=== PATIENT | female | born 1950 | race Caucasian/White ===

== ENCOUNTER 2020-11-20 14:23 | Emergency (ER) | payer MEDICARE, SELFPAY ==
--- NOTE | ~2020-11-20 | CT_ITS ---
EXAMINATION: CT HEAD WITHOUT CONTRAST CLINICAL INFORMATION: Altered mental status COMPARISON: None TECHNIQUE: Contiguous axial imaging was performed from the skull base to vertex without intravenous administration of contrast. This CT examination was performed using dose optimization techniques as appropriate, variously including the following: *Automated exposure control *Adjustment of mA and/or kV according to patient size (this includes techniques or standardized protocols for targeted exams where dose is matched to indication/reason for exam; i.e. extremities or head) *Use of iterative reconstruction technique DLP: 573 mGy-cm FINDINGS: There is no evidence of acute intracranial hemorrhage or territorial infarction. No abnormal mass effect or midline shift is seen. Goodwin to white matter differentiation is well preserved. No extra-axial fluid collections are identified. There is mild prominence of the subarachnoid spaces and ventricles, likely reflective of volume loss. There is no abnormal attenuation within the brain parenchyma. The osseous structures and soft tissues are normal. The mastoid air cells and visualized portions of the paranasal sinuses are well aerated. CT/CT head/brain wo con IMPRESSION: No acute intracranial pathology.
--- NOTE | ~2020-11-20 | CT_ITS ---
EXAMINATION CT CHEST, ABDOMEN AND PELVIS WITH CONTRAST CLINICAL INFORMATION: Weakness and diarrhea COMPARISON: None. TECHNIQUE: Multidetector volumetric CT imaging of the chest, abdomen and pelvis was obtained after the administration of 100 mL of intravenous Omnipaque 300 without immediate adverse reactions. Coronal and sagittal reformats were reviewed. This CT examination was performed using dose optimization techniques as appropriate, variously including the following: *Automated exposure control *Adjustment of mA and/or kV according to patient size (this includes techniques or standardized protocols for targeted exams where dose is matched to indication/reason for exam; i.e. extremities or head) *Use of iterative reconstruction technique DLP: 294 mGy-cm. FINDINGS: CHEST LUNGS/PLEURA: Mild emphysema. Scattered areas of cystic and varicoid bronchiectatic change present bilaterally, worst within the left upper lobe. There are scattered endobronchial secretions as well as diffuse bronchial wall thickening. Within the lateral lingula, subpleural masslike opacity measuring 2.6 x 2.3 x 2.3 cm with overlying pleural thickening (see horvath images). There is an additional 1.8 cm nodular opacity within the lingula which appears to be associated with cystic bronchiectasis, likely mucus within a dilated bronchus. There are surrounding nodular opacities within the lingula, largely bronchocentric. No pleural effusion or pneumothorax. MEDIASTINUM/ANY: Heart normal in size. Coronary calcifications. Trace pericardial effusion. No mediastinal, hilar or supraclavicular adenopathy. Aorta is atherosclerotic. Central airways are patent. CHEST WALL/AXILLA: Unremarkable. ABDOMEN/PELVIS HEPATOBILIARY: Liver normal in size, contour and morphology. No suspicious lesions. No intra or extrahepatic biliary dilation. Cholelithiasis. No pericholecystic fluid. PANCREAS: Unremarkable. SPLEEN: Unremarkable. ADRENAL GLANDS: Unremarkable. KIDNEYS, URETERS AND BLADDER: Kidneys normal in size, axis and morphology demonstrating symmetric enhancement. No hydronephrosis or urinary calculi. Ureters normal in course and caliber. Bladder grossly unremarkable.. GASTROINTESTINAL TRACT: There is sigmoid colonic diverticulosis. Under distention of the sigmoid colon limits assessment for wall thickening. No pericolic inflammation. Small sliding-type hernia. Stomach otherwise unremarkable. Small bowel is normal. PELVIC VISCERA: Uterus and adnexa unremarkable. LYMPH NODES: No lymphadenopathy. PERITONEUM/BODY WALL: Unremarkable. VASCULAR STRUCTURES: Aorta is atherosclerotic. No aortic aneurysm. OSSEOUS STRUCTURES No acute or suspicious osseous abnormalities. Bones are demineralized. Scattered bone islands present throughout the pelvis, and bilateral femora. CT/CT abdomen pelvis wo con IMPRESSION: CHEST: * Mild emphysema.. * Scattered areas of cystic and varicoid bronchiectasis present bilaterally, more pronounced within the left upper lobe. * There is a masslike 2.6 and subpleural opacity within the lingula with overlying pleural thickening. Suspect that this represents infective consolidation and associated pleural-parenchymal scarring, however the possibility of an underlying pulmonary mass is not excluded. As this would also likely be positive on PET/ CT brain whether infectious or neoplastic), recommend short interval follow-up CT chest in 1-3 months in lieu of PET/CT or immediate biopsy. If persistent at that time, I would recommend tissue sampling. ABDOMEN/PELVIS * Sigmoid colonic diverticulosis/chronic diverticular disease. * Cholelithiasis.
--- NOTE | ~2020-11-20 | CT_ITS ---
EXAMINATION: CT CERVICAL SPINE WITHOUT CONTRAST CLINICAL INFORMATION: Altered mental COMPARISON: None TECHNIQUE: Helical imaging of the cervical spine was performed in the axial plane with generation of coronal and sagittal reformatted images This CT examination was performed using dose optimization techniques as appropriate, variously including the following: *Automated exposure control *Adjustment of mA and/or kV according to patient size (this includes techniques or standardized protocols for targeted exams where dose is matched to indication/reason for exam; i.e. extremities or head) *Use of iterative reconstruction technique DLP: 272 mGy-cm FINDINGS: There is bony fusion between the C2 and C3 vertebral bodies. No acute fracture or dislocation. The vertebral body heights are maintained. There are mild hypertrophic changes of the C1-C2 articulation. The paravertebral soft tissues are normal. There is biapical pleural scarring in the lung apices. There is partially visualized bronchiectasis in the left upper lobe and inspissated mucus within small airways. Spinal levels: C2-C3: Bony fusion between the vertebral bodies and the facet joints. Patent bilateral neural foramina. C3-C4: Grade 1 retrolisthesis of C3 on C4. Intervertebral disc space narrowing with anterior and uncovertebral osteophyte formation. Mild bilateral neural foraminal narrowing. C4-C5: Mild intervertebral disc space narrowing with anterior and uncovertebral osteophyte. Right neuroforamen is patent. Moderate narrowing of the left neural foramina. C5-C6: Mild intervertebral disc space narrowing. Patent bilateral neural foramina. C6-C7: Mild intervertebral disc space narrowing. Patent bilateral neural foramina. C7-T1: Mild intervertebral disc space narrowing. Patent bilateral neuroforamina. CT/CT cervical spine wo con IMPRESSION: 1. Multilevel degenerative changes of the cervical spine without acute fracture or dislocation. 2. Partially visualized bronchiectasis in the left upper lobe and inspissated mucus within small airways. Please see report for concurrent CT of the chest, abdomen, and pelvis.
[2020-11-20 14:32] VITALS: BP 123/75; PULSE 103; RESP 20; TEMP 36.3; O2SAT 97; BMI 19.5
--- NOTE | 2020-11-20 14:40 | ECG_ITS ---
Test Reason : AMS Blood Pressure : / mmHG Vent. Rate : 090 BPM Atrial Rate : 091 BPM P-R Int : 000 ms QRS Dur : 074 ms QT Int : 366 ms P-R-T Axes : 000 073 113 degrees QTc Int : 447 ms Normal sinus rhythm Anteroseptal infarct (cited on or before 20-NOV-2020) ST & T wave abnormality, consider lateral ischemia Abnormal ECG When compared with ECG of 20-NOV-2020 15:47, Serial changes of Anteroseptal infarct Present Referred By: Gabbie Alonzo Electronically Signed By: MANJULA JACKSON
--- NOTE | 2020-11-20 14:44 | ED.AMS ---
HPI - Altered Mental Status General Chief Complaint: Fall Stated Complaint: FALL WEEKS AGO, FTT Time Seen by Provider: 11/20/20 14:24 Source: patient Mode of arrival: ambulatory Limitations: other (hard of hearing) History of Present Illness HPI narrative: 70 yo female poor historian here with decline since the start of the COVID pandemic, fell 4 weeks ago and has worsened since then as well and family finally checked on her today the house was unkempt and there was stool and feces on the cough where she was sitting, the patient tells a different story acknowledges fall but notes she does not live alone and two of her children live with her. spoke to daughter Steph she tells us the patient has not been to the doctors in over 30 years and that she is not eating x 1 month, she has had diarrhea, she did fall 4 weeks ago and has worsened since then, she lives with her son. complaint: weakness and other (FTT) Onset (ago): month(s) (several but much worse over 4 weeks after fall ) Severity: moderate Consistency of symptoms: constant Associated symptoms: cough and weakness Related Data Allergies Allergy/AdvReac Type Severity Reaction Status Date / Time No Known Allergies Allergy Verified 11/20/20 14:35 Review of Systems Review of Systems: Constitutional : No Weight loss, No Fever, No Chills, pos Fatigue, pos Malaise ENT/Mouth : No sore throat, No Rhinorrhea Eyes: No Eye Pain, No Swelling, No Redness Cardiovascular : No Chest Pain, no SOB, No Dyspnea on Exertion, No Orthopnea, No Edema, No Palpitations Respiratory : pos Cough, No Sputum, pos Wheezing Gastrointestinal : No Nausea, No Vomiting, No Diarrhea, No Constipation, No abdominal Pain, No Hematochezia, No Melena Genitourinary : No Dysuria, No Urinary Frequency, No Hematuria, Musculoskeletal : No joint pain, No Myalgias, No Joint Swelling Skin : No Skin Lesions, No rash Neuro : pos Weakness, No Numbness, No Dizziness, No Headache Psych : No Anxiety/Panic, No Depression Heme/Lymph: No Bruising, No Bleeding,No Lymphadenopathy Endocrine : No Polyuria, No Polydipsia All other systems reviewed and are negative PMFSH Past Medical History Attestation statement: The following information was validated with the patient. Source: old records reviewed Medical History (Updated 11/20/20 @ 16:01 by Gabbie Alonzo DO) Asthma No known health problems Social History Social History Alcohol intake: never Smoking Status: Current every day smoker Use of substances other than those prescribed or required for medical reasons: No Advance Directives: No Advance Directives Information Provided: No Physical Exam Vital Signs: Vital Signs: Last Vital Signs Temp 97.3 F 11/20/20 14:32 Pulse 87 11/20/20 14:55 Resp 20 11/20/20 14:32 BP 123/75 11/20/20 14:32 Pulse Ox 97 11/20/20 14:32 Body Mass Index 19.5 Appearance: Alert. Oriented X3. No acute distress. Eyes: Pupils equal, round and reactive to light. ENT: Pharynx normal. Neck: Normal inspection. Neck supple. CVS: Normal heart rate and rhythm. Pulses normal. Respiratory: No respiratory distress. diffuse wheezing on exam, dry cough Abdomen: Soft and nontender. Skin: Skin warm and dry. Normal skin color. Normal skin turgor. Extremities: No lower extremity edema. No calf ttp Neuro: Oriented X 3. No motor deficit. No sensory deficit. diffusely weak but symmetric Course Course Course Narrative: signed out to Dr. Casas pending workup elevated ddimer CTA ordered MDM - Altered Mental Status MDM Narrative Medical decision making narrative: 70 yo female from home with c/o weakness fall 4 weeks ago, FTT house unkempt at this time will need CT head/cspine/chest/abdomen, labs, IV steroids, neb treatment, UA, dispo per results and workup, if no acute issues will need PT/CM. Lab Data Result diagrams: 11/20/20 15:04 11/20/20 15:04 Labs: Lab Results 11/20/20 11/20/20 11/20/20 Range/Units 15:04 15:04 15:04 WBC 7.0 (4.8-10.8) X10*3/uL RBC 4.16 L (4.20-5.50) X10*6/uL Hgb 12.5 (12.0-16.0) g/dl Hct 37.0 (37-47) % MCV 88.9 (80-98) fL MCH 30.0 (27.0-33.0) pg MCHC 33.8 (31.0-35.0) g/dl RDW 14.7 (11.0-16.0) % Plt Count 255 (160-400) X10*3/uL MPV 9.2 L (9.4-12.3) fL Immature Gran % (Auto) 0.9 H (0.0-0.4) % Neut % (Auto) 81.0 H (45-73) % Lymph % (Auto) 10.4 L (20-40) % [place] % (Auto) 7.3 (2-11) % Eos % (Auto) 0.1 (0-4) % Baso % (Auto) 0.3 (0-2) % Lymph # (Auto) 0.7 L (1.2-4.9) X10*3/uL [place] # (Auto) 0.5 (0.1-1.2) X10*3/uL Eos # (Auto) 0.0 (0.0-0.4) X10*3/uL Baso # (Auto) 0.0 (0.0-0.2) X10*3/uL Abs Immat Gran (auto) 0.06 H (0.00-0.03) X10*3/uL Absolute Neuts (auto) 5.7 (2.0-8.3) X10*3/uL Absolute Nucleated RBC 0.000 (0.0-0.012) X10*3/uL Nucleated RBC % (auto) 0.0 (0.0-0.2) /100WBC PT (10.8-13.0) SEC INR (0.9-1.1) APTT (24.1-38.0) SEC D-Dimer NG/ML VBG pH (7.32-7.43) VBG pCO2 mmHg VBG pO2 mmHg VBG HCO3 mmol/L VBG O2 Saturation % VBG Base Excess mmol/L Lactic Acid 1.9 (0.5-2.0) mmol/L Ammonia (13-55) umol/L TSH 1.10 (0.32-4.0) uIU/mL Salicylates (15-30) mg/dL Ethyl Alcohol mg/dL COVID-19 ([facility]) (Negative) COVID-19 Clin Com 11/20/20 11/20/20 11/20/20 Range/Units 15:05 15:05 15:05 WBC (4.8-10.8) X10*3/uL RBC (4.20-5.50) X10*6/uL Hgb (12.0-16.0) g/dl Hct (37-47) % MCV (80-98) fL MCH (27.0-33.0) pg MCHC (31.0-35.0) g/dl RDW (11.0-16.0) % Plt Count (160-400) X10*3/uL MPV (9.4-12.3) fL Immature Gran % (Auto) (0.0-0.4) % Neut % (Auto) (45-73) % Lymph % (Auto) (20-40) % Huntington % (Auto) (2-11) % Eos % (Auto) (0-4) % Baso % (Auto) (0-2) % Lymph # (Auto) (1.2-4.9) X10*3/uL Huntington # (Auto) (0.1-1.2) X10*3/uL Eos # (Auto) (0.0-0.4) X10*3/uL Baso # (Auto) (0.0-0.2) X10*3/uL Abs Immat Gran (auto) (0.00-0.03) X10*3/uL Absolute Neuts (auto) (2.0-8.3) X10*3/uL Absolute Nucleated RBC (0.0-0.012) X10*3/uL Nucleated RBC % (auto) (0.0-0.2) /100WBC PT 13.0 (10.8-13.0) SEC INR 1.1 (0.9-1.1) APTT 30.8 (24.1-38.0) SEC D-Dimer 681 NG/ML VBG pH (7.32-7.43) VBG pCO2 mmHg VBG pO2 mmHg VBG HCO3 mmol/L VBG O2 Saturation % VBG Base Excess mmol/L Lactic Acid (0.5-2.0) mmol/L Ammonia 28 (13-55) umol/L TSH (0.32-4.0) uIU/mL Salicylates (15-30) mg/dL Ethyl Alcohol < 10 mg/dL COVID-19 ([facility]) (Negative) COVID-19 Clin Com 11/20/20 11/20/20 11/20/20 Range/Units 15:05 15:25 15:25 WBC (4.8-10.8) X10*3/uL RBC (4.20-5.50) X10*6/uL Hgb (12.0-16.0) g/dl Hct (37-47) % MCV (80-98) fL MCH (27.0-33.0) pg MCHC (31.0-35.0) g/dl RDW (11.0-16.0) % Plt Count (160-400) X10*3/uL MPV (9.4-12.3) fL Immature Gran % (Auto) (0.0-0.4) % Neut % (Auto) (45-73) % Lymph % (Auto) (20-40) % Huntington % (Auto) (2-11) % Eos % (Auto) (0-4) % Baso % (Auto) (0-2) % Lymph # (Auto) (1.2-4.9) X10*3/uL Huntington # (Auto) (0.1-1.2) X10*3/uL Eos # (Auto) (0.0-0.4) X10*3/uL Baso # (Auto) (0.0-0.2) X10*3/uL Abs Immat Gran (auto) (0.00-0.03) X10*3/uL Absolute Neuts (auto) (2.0-8.3) X10*3/uL Absolute Nucleated RBC (0.0-0.012) X10*3/uL Nucleated RBC % (auto) (0.0-0.2) /100WBC PT (10.8-13.0) SEC INR (0.9-1.1) APTT (24.1-38.0) SEC D-Dimer NG/ML VBG pH 7.40 (7.32-7.43) VBG pCO2 33 mmHg VBG pO2 40 mmHg VBG HCO3 21 mmol/L VBG O2 Saturation 63.0 % VBG Base Excess -2.7 mmol/L Lactic Acid (0.5-2.0) mmol/L Ammonia (13-55) umol/L TSH (0.32-4.0) uIU/mL Salicylates 8.3 L (15-30) mg/dL Ethyl Alcohol mg/dL COVID-19 ([facility]) Negative (Negative) COVID-19 Clin Com See Note ECG Data ECG #1: Attestation: I personally reviewed and interpreted this ECG as follows: ECG interpretation date: 11/20/20 ECG interpretation time: 15:53 Interpretation: Rate: 87 Rhythm: NSR [place]: normal Normal P waves. Normal CHUCK. Normal QRS complex. Poor R wave progression ST T wave : ST depressions 1 aVL, inverted V4-V6, biphasic in V3, no SANDIP qTC: normal prior studies: 2002 changed today The study has been interpreted contemporaneously by me. . Discharge Plan Discharge Clinical Impression: Acute bronchospasm, Weakness, Abnormal ECG
[2020-11-20] MEDS: Albuterol Sulfate (0.083%) 2.5 MG/3 ML VIAL.NEB INHALE (14:51)
[2020-11-20 14:55] VITALS: PULSE 87; O2SAT 96
[2020-11-20 15:11] LABS: Basophils Percent Auto 0.3 % (0-2); Eosinophils Percent Auto 0.1 % (0-4); Hemoglobin 12.5 g/dl (12.0-16.0); Imm Gran Abs Auto 0.06 X10*3/uL (0.00-0.03); Imm Gran Pct Auto 0.9 % (0.0-0.4); Lymphocytes Absolute Auto 0.7 X10*3/uL (1.2-4.9); Lymphocytes Percent Auto 10.4 % (20-40); MANUAL DIFF FLAG NO; Mean Corpuscular HGB Conc 33.8 g/dl (31.0-35.0); Mean Corpuscular Volume 88.9 fL (80-98); Mean Platelet Volume 9.2 fL (9.4-12.3); Monocytes Absolute Auto 0.5 X10*3/uL (0.1-1.2); Monocytes Percent Auto 7.3 % (2-11); Neutrophils Absolute Auto 5.7 X10*3/uL (2.0-8.3); Platelet Count 255 X10*3/uL (160-400); Red Blood Count 4.16 X10*6/uL (4.20-5.50); Red Cell Distribution Width 14.7 % (11.0-16.0)
[2020-11-20 15:17] LABS: INTERNATIONAL NORM RATIO 1.1 (0.9-1.1)
[2020-11-20 15:19] LABS: Partial Thromboplastin Time 30.8 SEC (24.1-38.0)
[2020-11-20] MEDS: methylPREDNISolone Sod Succ/PF 125 MG/2 ML VIAL 60 MG IVPUSH (15:22)
[2020-11-20] MEDS: Magnesium Sulfate/H2O 2 GM/50 ML PIGGYBACK IV (15:22)
[2020-11-20 15:37] LABS: Lactic Acid 1.9 mmol/L (0.5-2.0)
[2020-11-20 15:38] LABS: Base Excess VBG -2.7 mmol/L; HCO3 VBG 21 mmol/L; PCO2 VBG 33 mmHg; PO2 VBG 40 mmHg
[2020-11-20 15:41] LABS: Salicylate 8.3 mg/dL (15-30)
[2020-11-20 15:49] LABS: Ethanol < 10 mg/dL
[2020-11-20 15:51] LABS: COVID-19 Test Negative (Negative); IDNOW Serial# 9DD0AD1C
[2020-11-20 15:55] LABS: Ammonia 28 umol/L (13-55)
[2020-11-20 16:06] LABS: D Dimer 681 NG/ML
[2020-11-20 16:13] LABS: Alanine Aminotransferase < 6 U/L (0-31); Albumin Level 3.1 g/dL (3.5-5.0); Alkaline Phosphatase 66 U/L (39-117); Anion Gap 26 (12-20); Aspartate Amino Transferase 16 U/L (5-31); Bilirubin Direct 0.2 mg/dL (0.0-0.5); Bilirubin Total 0.5 mg/dL (0.0-1.0); Blood Urea Nitrogen 9 mg/dL (9-16); Calcium 7.9 mg/dL (8.4-10.2); Carbon Dioxide 16 mmol/L (22-29); Chloride 94 mmol/L (96-108); Creatinine Clr Calc Pharmacy 59.5; Estimated Glomerular Filt Rate > 60; Glucose Random 71 mg/dL (60-115); Lipase 19 U/L (8-78); Magnesium 1.7 mg/dL (1.6-2.6); Potassium 3.2 mmol/L (3.3-5.1); Sodium 133 mmol/L (135-145); Total Protein 5.9 g/dL (6.5-8.0)
[2020-11-20 16:26] LABS: B Type Natriuretic Peptide 38 pg/mL (<100); Troponin-I High Sensitivity < 3.5 ng/L (<3.5-17.0)
[2020-11-20 16:27] LABS: Acetaminophen LAB < 1 mcg/mL (<30)
[2020-11-20 18:09] VITALS: BP 102/55; PULSE 94; RESP 16; TEMP 36.4; O2SAT 99
[2020-11-20 18:20] LABS: Glucose Urine UA NEG (NEG); Leukocyte Esterase Urine 2+ (NEG); Nitrite Urine NEG (NEG); Specific Gravity - Urine >= 1.030 (1.005-1.025); UACC Culture Trigger YES; Urine Blood 1+ (NEG); Urine Ketones >=80 MG/DL (NEG); Urine Protein TRACE MG/DL (NEG-TRACE)
[2020-11-20 18:21] LABS: Appearance Urine CLOUDY; Color Urine YELLOW
[2020-11-20] MEDS: Albuterol Sulfate 90 MCG 8 GM INHALER 4 PUFF INHALE (18:25)
[2020-11-20 18:27] LABS: Bacteria Urine 1+ /LPF; Mucus Urine TRACE /LPF; Squamous Epithelial Cell Urine TRACE /LPF; WBC Urine TNTC /HPF (0-4)
[2020-11-20 18:41] LABS: Amphetamine Screen Urine Not Detected (Not Detect); Barbiturates, Urine Not Detected (Not Detect); Benzodiazepines Screen Urine Not Detected (Not Detect); Cannabinoid Screen Urine Not Detected (Not Detect); Cocaine Screen Urine Not Detected (Not Detect); Opiate Screen Urine Not Detected (Not Detect); Phencyclidine Screen Urine Not Detected (Not Detect)
== END 2020-11-20 18:48 | disposition home or self-care (01) ==
PROVIDERS: Emergency Medicine; Emergency Provider Internal Medicine
DX: J98.01 Acute bronchospasm (principal); R62.7 Adult failure to thrive; R41.82 Altered mental status, unspecified; R94.31 Abnormal electrocardiogram [ECG] [EKG]; R10.2 Pelvic and perineal pain; M54.2 Cervicalgia; R50.9 Fever, unspecified; Z20.822 Contact with and (suspected) exposure to COVID-19; F17.200 Nicotine dependence, unspecified, uncomplicated; Z71.6 Tobacco abuse counseling
CPT/HCPCS: 36415; 70450; 71250; 72125; 74176; 80048; 80076; 80307; 80320; 81001; 81003; 82140; 82550; 82803; 83605; 83690; 83735; 83880; 84443; 84484; 85025; 85379; 85610; 85730; 87040; 87086; 87205; 87635; 93005; 94640; 96365; 96367; 96375; 99284; G0480; J2930; J3475

== ENCOUNTER 2021-06-29 16:13 | Emergency (ER) | payer MEDICARE, SELFPAY ==
--- NOTE | 2021-06-29 16:40 | ED.SOB ---
HPI - SOB/Dyspnea General Stated Complaint: DIFF BREATHING, HYPOGYLCEMIC Time Seen by Provider: 06/29/21 16:40 Source: family, EMS, RN notes reviewed and old records reviewed Mode of arrival: EMS Limitations: altered mental status History of Present Illness HPI Narrative: 70 y/o female with history of lung cancer on Hospice up until one month ago presents to the ER from home via EMS with shortness of breath, no PO intake in 4 days and worsening generalized edema. Per her family she was on Hospice until end of May because she was doing fine. She was not needing any of her hospice medications at the time. Over the last week or so she significantly declined. She lives with her son and daughter (who also works for the hospice company). She has been more lethargic and refusing to eat. She has had a runny nose and they thought she had a cold. Family called EMS. On EMS arrival patient's SpO2 95% on room air, BP 60/40s and glucose 50. She was placed on 100% NRB with improvement in sats to 100%. She was given oral glucose and brought to the ER for further evaluation. MD elicited complaint: shortness of breath Pertinent past history: other (lung cancer, bronchiectasis) Onset (ago): day(s) Context: recent illness Timing: constant Severity: severe Exacerbating factors: lying flat Relieving factors: oxygen Associated symptoms: cough, wheezing, lower extremity pain and chest congestion Treatment prior to arrival: oxygen Related Data Home oxygen amount: none Previous Rx's Medication Instructions Recorded albuterol sulfate 90 mcg/actuation 2 puff INHALATION Q4-6H PRN #8.5 g 11/20/20 aerosol inhaler cefuroxime axetil 500 mg tablet 500 mg PO BID 10 Days #20 tab 11/20/20 doxycycline hyclate 100 mg capsule 100 mg PO BID #20 cap 11/20/20 prednisone 20 mg tablet 40 mg PO DAILY #10 tab 11/20/20 lorazepam 2 mg/mL oral concentrate 0.5 mg PO Q1H PRN #30 ml 06/29/21 (Lorazepam Intensol) morphine concentrate 100 mg/5 mL 5 mg PO Q1H PRN #15 ml 06/29/21 (20 mg/mL) oral solution Allergies Allergy/AdvReac Type Severity Reaction Status Date / Time No Known Allergies Allergy Verified 11/20/20 14:35 Review of Systems Constitutional: Constitutional: Denies chills, Denies fever(s) and Reports poor appetite Eyes: Eyes: Reports no additional eye complaints ENT: Reports hearing loss Cardiovascular: Cardiovascular: Denies chest pain and Reports dyspnea Respiratory: Respiratory: Reports chest congestion, Reports cough, Denies pain with cough and Reports dyspnea Gastrointestinal: Gastrointestinal: Denies diarrhea, Denies nausea and Denies vomiting Musculoskeletal: Musculoskeletal: Reports arthralgias, Reports muscle weakness and Reports radiating pain into limb Integumentary/Breasts: Skin/Breast: Denies rash Neurologic: Reports confusion Psychiatric: Psychiatric: Reports confusion [facility] Past Medical History Attestation statement: The following information was validated with the patient. Medical History Asthma No known health problems Social History Social History Alcohol intake: never Advance Directives: No Advance Directives Information Provided: Yes Physical Exam Const: General: acute distress mild and respiratory, confusion and lethargic Nutritional Appearance: malnourished and thin Orientation/consciousness: confusion and lethargic Limitations: altered mental status HENMT: Head: Yes normal to inspection, Yes normocephalic and Yes atraumatic Ears: hearing grossly impaired bilaterally General nose exam: Normal external nose present and Normal nares present Face and sinus: Yes normal facial exam and Yes face symmetric Mouth: Abnormal oral and palatal mucosa present other (dry mucus membranes) Eyes: General: appearance normal, both eyes and all related structures Pupils: Equal, round and reactive pupils present Neck: Neck: Yes normal visual inspection and Yes no lymphadenopathy Chest: Chest palpation & inspection: abnormal inspection of the chest barrel chest Resp: Effort & Inspection: labored, respiratory distress, tachypneic and uses accessory muscles Auscultation: rhonchi throughout Cardio: Rate: regular rate Rhythm: regular rhythm Heart sounds: S1 normal heart sound present and S2 normal heart sound present GI: Inspection: Yes normal to inspection Palpation (GI): Soft to palpation, not firm and nontender Auscultation: Hypoactive bowel sounds present Skin: General skin exam: no rashes or lesions noted Neuro: General: confusion Cranial nerves: Yes Equal, round and reactive pupils present Extrem: General: Yes muscle atrophy and Yes pedal edema Psych: Appearance: disheveled Mental Status: other (lethargic) Course Course Course Narrative: 70 y/o female with lung cancer, recently on Hospice who presents to the ER with significant clinical decline in the last 4-5 days. She is hypotensive, hypoglycemic and hypoxic. It appears she is actively dying at this time. She is not in significant distress with the O2. Her BP here is 70/30's. Spoke with 2 daughters at the bedside and expressed concern for her current state and concern she is not going to live long. They would like her to be transported back home where she can peacefully in her own bed, which has been her only wish. Confirming with other daughter if they have Hospice medications at home for comfort. Reevaluation(s) Reevaluation #1: human service coordinator spoke with Hospice nurse - plan to meet the family at home tonight. They will need medications to get through the next 24 hours - will give morphine and ativan concentrated solutions for home. Plan to ADMIT TO HOSPICE tonight and start end of life care. Family is grateful to be able to take their mother home for the end of her life and the dying process. Transport to be booked now. Discharge Plan Discharge Clinical Impression: End of life care, Hypoglycemia, Acute respiratory failure with hypoxia Hypotension Qualifiers: Hypotension type: unspecified hypotension type Qualified Code(s): I95.9 - Hypotension, unspecified Patient Disposition: Home, Self-Care Instructions: and Dying (DC) Additional Instructions: ADMIT TO HOSPICE Administer the prescribed medications as directed as needed for symptoms of discomfort, difficulty breathing, anxiety, agitation Follow up with Hospice nurse tonight Prescriptions: New morphine concentrate 100 mg/5 mL (20 mg/mL) solution 5 mg PO Q1H PRN (Reason: pain) Qty: 15 RF: 0 lorazepam [Lorazepam Intensol] 2 mg/mL concentrate 0.5 mg PO Q1H PRN (Reason: anxiety) Qty: 30 RF: 0 No [facility] doxycycline hyclate 100 mg capsule 100 mg PO BID Qty: 20 RF: 0 cefuroxime axetil 500 mg tablet 500 mg PO BID 10 Days Qty: 20 RF: 0 albuterol sulfate 90 mcg/actuation HFA aerosol inhaler 2 puff inhalation Q4-6H PRN (Reason: shortness of breath or wheezing) Qty: 8.5 RF: 2 prednisone 20 mg tablet 40 mg PO DAILY Qty: 10 RF: 0
[2021-06-29 17:49] VITALS: BP 76/49; BMI 21.6
--- NOTE | 2021-06-29 17:56 | MHC.CM.ED ---
CM received consult from Shalini Robins. Pt arrived via ambulance from home. Pt has end stage lung cancer and is actively dying. Pt is on oxygen at 100% via non-rebreather. Pt is alert and able to speak with family. Pt appears comfortable at present Multiple family members are with patient. Pt wish is to at home. Pt was in Hospice with [facility] until 1-2 months ago. Pt is known to agency. Family has spoken with facility and on-call RN Terra Jolly ([phone]) regarding reinstating hospice services. CM spoke with Terra Jolly hospice supervisor [employer] RN. Terra Jolly will see pt tonight at home for intake. Requested 2 prescriptions for this evening, until Hospice can get medications for pt. Morphine Sulfate liquid 20 mg/ml 5mg q1hour prn pain or SOB and Ativan Intensol 2mg/ml 0.5mg q1hour prn agitation. Shalini sneed and paper scripts given to family to fill tonight. Per Terra Jolly, oxygen will be delivered tonight. ED H&P and D/C summary with order to admit to hospice faxed to [phone] and given to family for cutter out. Daughter, Steph Gaitan is HCP ([phone]). HCP is not on file. Pt and family are in agreement to d/c tonight to home with hospice care. [facility] booked for 6:30 pm. Called to confirm. CM to follow for d/c needs.
[2021-06-29 18:50] VITALS: PULSE 63; RESP 18; O2SAT 99
--- NOTE | 2021-06-29 19:12 | MHC.CM.ED ---
MOLST completed by Shalini Gandhi and HCP Steph Gaitan at request of ambulance transport team. Copy given to family. Uploaded into [employer]. Pt is DNR/DNI, no dialysis, no hydration, no IV. Pt transported home. Terra Jolly RN [facility]. called with pt transport by ambulance. 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 Fax says [facility] . Terra Jolly aware that requested copies given to family for her. Terra Jolly agreeable.
== END 2021-06-29 18:52 | disposition home or self-care (01) ==
PROVIDERS: Emergency Provider Emergency Medicine Emergency Medical Services
DX: J96.01 Acute respiratory failure with hypoxia (principal); I95.9 Hypotension, unspecified; C34.90 Malignant neoplasm of unspecified part of unspecified bronchus or lung; E16.2 Hypoglycemia, unspecified; Z79.899 Other long term (current) drug therapy
CPT/HCPCS: 99284